=== PATIENT | female | born 1980 | race African-American/Black ===

== ENCOUNTER 2017-01-25 18:13 | Emergency (ER) | payer MEDICAID, OTHER ==
[~2017-01-25] VITALS: Ht 171.4 cm; Wt 74.8 kg
[2017-01-25] MEDS ORDERED: ASPIRIN 81 MG CHEW (CHILDREN'S ASA) ONE (18:27)
[2017-01-25] MEDS ORDERED: ASPIRIN 81 MG CHEW (CHILDREN'S ASA) PO ONE (18:30)
[2017-01-25 18:43] LABS: PROTHROMBIN TIME PATIENT 13.3 SEC (12.2-14.7)
--- NOTE | 2017-01-25 18:43 | Diagnostic Imaging Report ---
INDICATION: Chest pain. No prior examinations are available for comparison. FINDINGS: The heart size is normal. Mediastinum is unremarkable. There is no pleural effusion, pneumothorax or pneumonia. IMPRESSION: No acute cardiopulmonary abnormality Dictated by: Dictated on workstation # [id number]
--- NOTE | 2017-01-25 18:46 | ED Chest Pain ---
General Chief Complaint: Chest Pain Stated Complaint: CHEST PAIN Nursing Triage Note: to ER with complaints of left substernal chest pain that started at 1500. Nursing Sepsis Screen: No Definite Risk Source: patient Exam Limitations: no limitations History of Present Illness Time seen by provider: 18:23 Initial Comments 36-year-old female patient presents to the emergency department complains of left sided chest pain and substernal chest pain beginning at 1500. Patient reports feeling like cramping. Alternates 3 minutes of cramps with 3 minutes of relief. Patient is asymptomatic at the time of exam. Denies previous episodes. Denies a family history of cardiac disorders or acute MIs. Location Injury Occurred: denies known injury Timing/Duration: intermittent, gone now, other (onset at 1500) Severity/Quality: other (cramping) Location: other (left chest) Radiation: other (substernal) Activities at Onset: none (sitting at her desk at work.) Prior CP/Workup: no prior chest pain, no prior cardiac workup Modifying Factors: worse with other (denies modifying factors) ASA po INSTRUCTOR OF SPANISH: No NTG SL INSTRUCTOR OF SPANISH: No Allergies and Home Medications Allergies Coded Allergies: No Known Drug Allergies (Unverified , 01/25/17) Home Medications No Active Prescriptions or Reported Meds Review of Systems Constitutional: No chills, No diaphoresis, No dizziness, No fever, No malaise EENTM: No Symptoms Reported Respiratory: Denies Cough, Denies Orthopnea, Denies Shortness of Air, Denies SOA With Exertion Cardiovascular: See HPI, Denies Chest Pain (patient denies current chest pain.) , Denies Edema, Denies Lightheadedness, Denies Palpitations, Denies Syncope Gastrointestinal: Denies Abdominal Pain, Denies Constipated, Denies Diarrhea, Denies Nausea, Denies Vomiting Genitourinary: No Symptoms Reported Musculoskeletal: no symptoms reported Skin: no symptoms reported Psychiatric/Neurological: No Symptoms Reported All Other Systems Reviewed Negative Unless Noted: Yes (Negative excepted noted.) Past Nlejutr-Lsobjr-[id number] Hx Patient Social History Alcohol Use: Denies Use Recreational Drug Use: No Smoking Status: Current Everyday Smoker (1/2 ppd) Type Used: Cigarettes 2nd Hand Smoke Exposure: Yes Recent Foreign Travel: No Contact w/Someone Who Travel: No Recent Infectious Disease Expo: No Recent Hopitalizations: No Immunizations Up To Date Tetanus Booster (TDap): Less than 5yrs PED Vaccines UTD: Yes Seasonal Allergies Seasonal Allergies: No Respiratory Hx Respiratory Disorders: No Cardiovascular Hx Cardiac Disorders: No Neurological Hx Neurological Disorders: No Genitourinary Hx Genitourinary Disorders: No Gastrointestinal Hx Gastrointestinal Disorders: No Musculoskeletal Hx Musculoskeletal Disorders: No Endocrine Hx Endocrine Disorders: No HEENT HX ENT Disorders: No Cancer Hx Cancer: No Psychosocial Hx Psychiatric Problems: No Blood Transfusions Adverse Reaction to a Blood Tr: No Reviewed Nursing Assessment Reviewed/Agree w Nursing PMH: Yes Family Medical History Significant Family History: No Pertinent Family Hx Physical Exam Vital Signs Vital Sign - Last 12Hours 01/25/17 18:23 Temp 98.2 Pulse 67 Resp 18 B/P (MAP) 121/79 Pulse Ox 99 O2 Delivery Room Air Capillary Refill : Less Than 3 Seconds General Appearance: No Apparent Distress, WD/WN HEENT: PERRL/EOMI, Pharynx Normal Neck: Normal Inspection, Supple Respiratory: Chest Non Tender, Lungs Clear, Normal Breath Sounds, No Respiratory Distress Cardiovascular: Regular Rate, Rhythm, No Edema, No Murmur, Normal Peripheral Pulses Gastrointestinal: Normal Bowel Sounds, No Organomegaly, No Pulsatile Mass, Non Tender, Soft, No Distended Extremity: Normal Capillary Refill, No Pedal Edema Neurologic/Psychiatric: Alert, Oriented x3, Normal Mood/Affect Skin: Normal Color, Warm/Dry Progress/Results/Core Measures Results/Orders Lab Results Laboratory Tests Test 01/25/17 18:27 Range/Units White Blood Count 6.4 4.3-11.0 10^3/uL Red Blood Count 4.58 4.35-5.85 10^6/uL Hemoglobin 12.3 11.5-16.0 G/DL Hematocrit 35 35-52 % Mean Corpuscular Volume 75 L 80-99 FL Mean Corpuscular Hemoglobin 27 25-34 PG Mean Corpuscular Hemoglobin Concent 36 32-36 G/DL Red Cell Distribution Width 14.3 10.0-14.5 % Platelet Count 247 130-400 10^3/uL Mean Platelet Volume 10.6 H 7.4-10.4 FL Neutrophils (%) (Auto) 42 42-75 % Lymphocytes (%) (Auto) 42 12-44 % Monocytes (%) (Auto) 11 0-12 % Eosinophils (%) (Auto) 5 0-10 % Basophils (%) (Auto) 1 0-10 % Neutrophils # (Auto) 2.7 1.8-7.8 X 10^3 Lymphocytes # (Auto) 2.7 1.0-4.0 X 10^3 Monocytes # (Auto) 0.7 0.0-1.0 X 10^3 Eosinophils # (Auto) 0.3 0.0-0.3 10^3/uL Basophils # (Auto) 0.0 0.0-0.1 10^3/uL Prothrombin Time 13.3 12.2-14.7 SEC INR Comment 1.0 0.8-1.4 Activated Partial Thromboplast Time 29 24-35 SEC Sodium Level 142 135-145 MMOL/L Potassium Level 3.6 3.6-5.0 MMOL/L Chloride Level 111 H 98-107 MMOL/L Carbon Dioxide Level 24 21-32 MMOL/L Anion Gap 7 5-14 MMOL/L Blood Urea Nitrogen 6 L 7-18 MG/DL Creatinine 0.78 0.60-1.30 MG/DL Estimat Glomerular Filtration Rate > 60 BUN/Creatinine Ratio 8 Glucose Level 103 70-105 MG/DL Calcium Level 8.5 8.5-10.1 MG/DL Magnesium Level 2.1 1.8-2.4 MG/DL Total Bilirubin 0.5 0.1-1.0 MG/DL Aspartate Amino Transf (AST/SGOT) 13 5-34 U/L Alanine Aminotransferase (ALT/SGPT) 10 0-55 U/L Alkaline Phosphatase 50 40-136 U/L Total Creatine Kinase 78 29-168 U/L Creatine Kinase MB 0.9 <6.6 NG/ML Myoglobin 16.2 10.0-92.0 NG/ML Troponin I < 0.30 <0.30 NG/ML Total Protein 6.2 L 6.4-8.2 G/DL Albumin 3.8 3.2-4.5 G/DL My Orders Orders - CANDI DOMINGUEZ PA Cbc With Automated Diff (01/25/17 18:28) Magnesium (01/25/17 18:28) Chest 1 View, Ap/Pa Only (01/25/17 18:28) Ekg Tracing (01/25/17 18:28) Cardiac Profile 1 (01/25/17 18:28) Comprehensive Metabolic Panel (01/25/17 18:28) Myoglobin Serum (01/25/17 18:28) Protime With Inr (01/25/17 18:28) Partial Thromboplastin Time (01/25/17 18:28) O2 (01/25/17 18:28) Monitor-Rhythm Ecg Trace Only (01/25/17 18:28) Aspirin Chewable Tablet (Baby Aspirin Ch (01/25/17 18:30) Saline Lock/Iv-Start (01/25/17 18:28) Creatine Kinase (01/25/17 18:28) Creatine Kinase Mb (01/25/17 18:28) Medications Given in ED Current Medications Medications Dose Ordered Sig/Isidra Route Start Time Stop Time Status Last Admin Dose Admin Aspirin 324 mg ONCE ONCE PO 01/25/17 18:30 01/25/17 18:31 DC 01/25/17 18:31 324 MG Vital Signs/I&O Vital Sign - Last 12Hours 01/25/17 01/25/17 01/25/17 01/25/17 18:23 18:23 18:31 18:32 Temp 98.2 98.2 Pulse 67 Resp 18 B/P (MAP) 121/79 Pulse Ox 99 99 O2 Delivery Room Air Room Air 01/25/17 01/25/17 18:37 20:36 Temp 98.2 98.2 Pulse 73 Resp 18 Pulse Ox 99 Blood Pressure Mean: 93 ECG Initial ECG Impression Date: January 25, 2017 Initial ECG Impression Time: 18:25 Initial ECG Rate: 68 Initial ECG Rhythm: Normal Sinus Initial ECG Comparisson: No Previous ECG Available Comment Sinus rhythm. No STEMI or arrhythmia noted. ECG reviewed and discussed with Moreno Izquierdo MD. Diagnostic Imaging Diagonstic Imaging: Xray Plain Films/CT/US/NM/MRI: chest Comments INDICATION: Chest pain. No prior examinations are available for comparison. FINDINGS: The heart size is normal. Mediastinum is unremarkable. There is no pleural effusion, pneumothorax or pneumonia. IMPRESSION: No acute cardiopulmonary abnormality Dictated by: Dictated on workstation # [id number] Reviewed: Reviewed by Me (radiology report reviewed by me. ) Departure Communication Progress Notes All laboratory and diagnostic findings discussed with the patient. Patient continues to be asymptomatic. Heart rate is 66 bpm. SaO2 100 percent on room air. Plan for discharge to home with follow-up as an outpatient with her primary care physician Saturday or Saturday for recheck and for cardiology follow- up as an outpatient. Patient call for appointment time. Patient case discussed with Moreno Izquierdo MD. He agrees with the plan of care. Impression Impression: Primary Impression: Chest pain Qualified Codes: R07.9 - Chest pain, unspecified Disposition: HOME, SELF-CARE Condition: Improved Departure-Patient Inst. Decision time for Depature: 20:24 Referrals: [facility] (PCP[facility]Family) Primary Care Physician Patient Instructions: Chest Pain (DC) Add. Discharge Instructions: All discharge instructions reviewed with patient and/or family. Voiced understanding. Tylenol extra strength [id number] as directed for pain. Ibuprofen 800 mg by mouth every 8 hours as needed for pain. Avoid strenuous activity until released by your family practitioner. Follow-up with Jewell Balderas as an outpatient Saturday or Saturday for recheck. Follow-up with Dr. Sanches as an outpatient for further heart tests. Return to the emergency department immediately for worsened pain, shortness of air, fever, dizziness, numbness, weakness, or any other concerns. Scripts No Active Prescriptions or Reported Meds Work/School Note: Work Release Form Date Seen in the Emergency Department: January 25, 2017 Return to Work: January 26, 2017 Other Restrictions Listed Below: no strenuous activity until released by your family practitioner. CANDI DOMINGUEZ January 25, 2017 18:46
[2017-01-25 18:47] LABS: BASOPHILS % (AUTO) 1 % (0-10); EOSINOPHILS # (AUTO) 0.3 10^3/uL (0.0-0.3); EOSINOPHILS % (AUTO) 5 % (0-10); LYMPHOCYTES # (AUTO) 2.7 X 10^3 (1.0-4.0); LYMPHOCYTES % (AUTO) 42 % (12-44); MEAN CORPUSCULAR HEMOGLOBIN 27 PG (25-34); MEAN CORPUSCULAR HGB CONC 36 G/DL (32-36); MEAN CORPUSCULAR VOLUME 75 FL (80-99); MEAN PLATELET VOLUME 10.6 FL (7.4-10.4); MONOCYTES # (AUTO) 0.7 X 10^3 (0.0-1.0); MONOCYTES % (AUTO) 11 % (0-12); NEUTROPHILS # (AUTO) 2.7 X 10^3 (1.8-7.8); NEUTROPHILS % (AUTO) 42 % (42-75); PLATELET COUNT 247 10^3/uL (130-400); RED BLOOD COUNT 4.58 10^6/uL (4.35-5.85); RED CELL DISTRIBUTION WIDTH 14.3 % (10.0-14.5); WHITE BLOOD COUNT 6.4 10^3/uL (4.3-11.0)
[2017-01-25 18:53] LABS: ALANINE AMINOTRANSFERASE 10 U/L (0-55); ALBUMIN 3.8 G/DL (3.2-4.5); ANION GAP 7 MMOL/L (5-14); ASPARTATE AMINO TRANSFERASE 13 U/L (5-34); BILIRUBIN,TOTAL 0.5 MG/DL (0.1-1.0); BLOOD UREA NITROGEN 6 MG/DL (7-18); BUN/CREATININE RATIO 8; CALCIUM 8.5 MG/DL (8.5-10.1); CARBON DIOXIDE 24 MMOL/L (21-32); CHLORIDE 111 MMOL/L (98-107); CREATINE KINASE 78 U/L (29-168); CREATININE SERUM 0.78 MG/DL (0.60-1.30); GFR ESTIMATED > 60; GLUCOSE 103 MG/DL (70-105); MAGNESIUM 2.1 MG/DL (1.8-2.4); POTASSIUM 3.6 MMOL/L (3.6-5.0); SODIUM 142 MMOL/L (135-145); TOTAL PROTEIN 6.2 G/DL (6.4-8.2)
[2017-01-25 19:00] LABS: MYOGLOBIN SERUM 16.2 NG/ML (10.0-92.0)
[2017-01-25 20:36] VITALS: BP 109/77
== END 2017-01-25 20:36 | disposition home or self-care (01) ==
LOC: ER 18:16
DX: R07.9 Chest pain, unspecified (principal); F17.210 Nicotine dependence, cigarettes, uncomplicated
CPT/HCPCS: 36415; 71010; 80053; 82550; 82553; 83735; 83874; 84484; 85025; 85610; 85730; 93005; 93041